=== PATIENT | female | born 1995 | race Caucasian/White ===

== ENCOUNTER 2017-07-19 11:00 | Outpatient (CLI) | payer BC ==
--- NOTE | 2017-07-19 13:32 | ULT ---
ULTRASOUND ABDOMEN: History: 22-year-old female with abdominal pain. FINDINGS: The liver, spleen, gallbladder, pancreas, kidneys, and visualized portions of the aorta and IVC appea r normal. The common duct measures 2 mm in diameter. No free fluid is seen. IMPRESSION: Normal exam. POS: [facility]
== END 2017-07-19 11:01 | disposition home or self-care (01) ==
LOC: ULT 11:00
PROVIDERS: ATTEND Family Medicine
DX: R10.84 Generalized abdominal pain (principal)
CPT/HCPCS: 76700

== ENCOUNTER 2020-10-20 14:17 | Outpatient (CLI) | payer BC | END 2020-10-20 14:18 | disposition home or self-care (01) | LOC: BICRAD 14:17 | PROVIDERS: ATTEND Family Medicine | DX: M25.531 Pain in right wrist (principal) ==